=== PATIENT | male | born 1950 | race Caucasian/White ===

== ENCOUNTER 2019-09-23 05:32 | Day surgery (SDC) ==
[2019-09-18 08:51] LABS: URINE SOURCE CLEAN CATCH
[2019-09-18 08:57] LABS: BASO# 0.01 X1000 (0.0-0.2); BASO% 0.2 % (0.0-0.8); EOS# 0.09 X1000 (0.0-0.7); EOS% 1.5 % (0.0-10.0); HEMATOCRIT 55.8 % (42.0-52.0); HEMOGLOBIN 17.8 g/dL (14.0-18.0); IMM GRAN# 0.05 X1000 (0.0-0.04); IMM GRAN% 0.8 % (0.0-0.5); LYMPH# 1.46 X1000 (1.2-3.4); LYMPH% 23.8 % (20.5-51.1); MCH 29.7 PG (27-31); MCHC 31.9 g/dL (33-37); MONO# 0.61 X1000 (0.11-0.59); MONO% 9.9 % (1.7-9.3); MPV 11.7 FL (7.4-10.4); NEUT# 3.92 X1000 (1.4-6.5); NEUT% 63.8 % (42.2-75.2); PLT 165 X1000 (130-400); RDW 15.7 % (11.5-14.5); WBC 6.14 X1000 (4.8-10.8)
[2019-09-18 08:59] LABS: BILIRUBIN URINE NEGATIVE (NEGATIVE); BLOOD URINE NEGATIVE (NEGATIVE); COLOR YELLOW; GLUCOSE URINE NEGATIVE (NEGATIVE); KETONE URINE TRACE mg/dL (NEGATIVE); LEUKOCYTES URINE NEGATIVE (NEGATIVE); NITRITE URINE NEGATIVE (NEGATIVE); PROTEIN URINE TRACE mg/dL (NEGATIVE); SP GRAVITY URINE 1.027; TURBIDITY URINE CLEAR (CLEAR); UROBILINOGEN URINE NORMAL (NORMAL)
[2019-09-18 09:01] LABS: UR EPITHELIAL CELLS <10 /HPF (<10); URINE BACTERIA NEGATIVE /HPF; URINE RBC <10 /HPF (<10); URINE WBC <10 /HPF (<10)
[2019-09-18 09:03] LABS: INR 0.92; PROTIME 12.5 Seconds (11.0-16.0)
[2019-09-18 09:10] LABS: HEMOGLOBIN A1C 5.8 % (4.8-6.0)
[2019-09-18 09:25] LABS: ALBUMIN 4.1 g/dL (3.5-5.0); CALCIUM 9.3 mg/dL (8.8-10.2); CREATININE 1.3 mg/dL (0.7-1.2); POTASSIUM 4.1 mmol/L (3.5-5.1)
[2019-09-23] MEDS ORDERED: LYRICA ONE (06:11)
[2019-09-23] MEDS ORDERED: PEPCID ONE (06:11)
[2019-09-23] MEDS ORDERED: REGLAN ONE (06:11)
[2019-09-23] MEDS ORDERED: CELEBREX ONE (06:11)
[2019-09-23] MEDS ORDERED: COLACE ONE (06:11)
[2019-09-23] MEDS ORDERED: KEFZOL 1 GM/D5W 2 GM/100 ML IVPB ONE (06:12)
[2019-09-23] MEDS ORDERED: LR 1,000 ML ONE (06:12)
[2019-09-23] MEDS ORDERED: VANCOMYCIN ONE (06:32)
[2019-09-23] MEDS ORDERED: TORADOL ONE (06:32)
[2019-09-23] MEDS ORDERED: MARCAINE 0.25% PF ONE (06:32)
[2019-09-23] MEDS ORDERED: DURAMORPH ONE (06:32)
[2019-09-23] MEDS ORDERED: CYKLOKAPRON 1,000 MG/NS 1,000 MG/100 ML IVPB ONE ×2 (06:33→06:34)
[2019-09-23] MEDS ORDERED: SODIUM CHLORIDE 0.9% ONE (06:33)
[2019-09-23] MEDS ORDERED: NEOSPORIN G.U. IRRIGANT ONE (06:33)
[2019-09-23] MEDS ORDERED: EXPAREL 1.3% ONE (06:33)
[2019-09-23] MEDS ORDERED: FENTANYL ONE ×2 (06:39→08:00)
[2019-09-23] MEDS ORDERED: DIPRIVAN 1% ONE (06:39)
[2019-09-23] MEDS ORDERED: VERSED ONE (06:39)
[2019-09-23] MEDS ORDERED: ZOFRAN ONE (07:57)
[2019-09-23] MEDS ORDERED: DECADRON ONE (07:57)
[2019-09-23] MEDS ORDERED: OFIRMEV 1000 MG/ISOTONIC SOLN 1,000 MG/100 ML BOTTLE ONE (07:57)
[2019-09-23 08:02] LABS: URINE SOURCE CATH
[2019-09-23 08:12] LABS: BILIRUBIN URINE NEGATIVE (NEGATIVE); BLOOD URINE NEGATIVE (NEGATIVE); COLOR YELLOW; GLUCOSE URINE NEGATIVE (NEGATIVE); KETONE URINE TRACE mg/dL (NEGATIVE); LEUKOCYTES URINE NEGATIVE (NEGATIVE); NITRITE URINE NEGATIVE (NEGATIVE); PROTEIN URINE TRACE mg/dL (NEGATIVE); SP GRAVITY URINE 1.025; TURBIDITY URINE CLEAR (CLEAR); UROBILINOGEN URINE NORMAL (NORMAL)
[2019-09-23 08:13] LABS: UR EPITHELIAL CELLS <10 /HPF (<10); URINE BACTERIA NEGATIVE /HPF; URINE RBC <10 /HPF (<10); URINE WBC <10 /HPF (<10)
[2019-09-23] MEDS ORDERED: EPHEDRINE ONE (08:56)
[2019-09-23] MEDS ORDERED: OXY IR PO PRN ×2 (10:00)
[2019-09-23] MEDS ORDERED: ZOFRAN IV PRN (10:00)
[2019-09-23] MEDS ORDERED: MORPHINE IV PRN ×3 (10:00)
[2019-09-23] MEDS ORDERED: MILK OF MAGNESIA PO PRN (10:00)
[2019-09-23] MEDS ORDERED: ZOFRAN ODT PO PRN (10:00)
[2019-09-23] MEDS ORDERED: NS 1,000 ML ONE (10:06)
[2019-09-23] MEDS ORDERED: OXY IR ONE (10:17)
--- NOTE | 2019-09-23 11:03 | OPERATIVE NOTE ---
PROCEDURE DATE: 09/23/2019 PREOPERATIVE DIAGNOSIS: Left knee degenerative joint disease. POSTOPERATIVE DIAGNOSIS: Left knee degenerative joint disease. PROCEDURE: Left total knee arthroplasty using a [employer] size 9 femoral component, size 9 tibial base plate, a 14 mm articular insert and a 35 mm patellar component. ANESTHESIA: Spinal and general. SURGEON: Juan Stanley MD. DOOR FITTER: Chayito ZENG, who was present throughout the case whose assistance was critical for exposure, placement of endplates, decision making and closure. Her assistance was necessary for successful completion of case. BLOOD LOSS: Minimal. TOURNIQUET TIME: Approximately an hour. PROCEDURE: The patient was brought to the operative suite and placed in supine position. After administration of spinal anesthesia, the left lower extremity was prepped and draped in the usual sterile fashion. Leg was exsanguinated. Tourniquet insufflated to 350 torr. He was found to have an incomplete spinal upon beginning the skin incision. Therefore he underwent an LMA. Then the incision was made from the superior pole of the patella to the tibial tuberosity. The skin flaps were elevated medially and laterally. A medial arthrotomy was made. The medial capsule was elevated off the medial tibial plateau. The ACL, PCL, medial meniscus, and lateral meniscus were excised. A drill was entered into the center of the distal femur. Intramedullary guide was placed. The cutting block was pinned in place and distal cut made with oscillating saw. The attention was then directed to the tibia. A drill was then inserted into the tibia. Intramedullary guide was placed. The line was checked with drop linda referencing off the anterior cortex of the tibia and the second ray of the foot and taking 4 mm off the low side the tibia which in this case was medially. The articular surface of the tibial plateau was removed with oscillating saw. Marginal osteophytes removed with rongeur. The knee was taken out in extension. Once we were certain we had removed all medial and lateral meniscus and capsular redundant tissue including stump of the PCL, the extension gap was checked. It was tight medially. A medial release was performed and then it was balanced at 14 mm in extension. The flexion gap was set to 23 mm to account for 9 mm of the posterior condyle of the femur and then once rotation was set and was in line with the transepicondylar axis. The femur was sized to a size 9 cutting block was pinned into place. The anterior cuts, chamfer cuts, and posterior condylar cuts were made with the oscillating saw. Marginal osteophytes removed with rongeur. Box cutting block was pinned in place. Box cut was made with a box osteotome and oscillating saw. Posterior condyle osteophytes were removed with the curved osteotome and rongeur. Attention was directed to the tibia. The tibia measured to a size 9. A size 9 guide was used to do the fin punch, was set with the proper amount of external rotation. Then the tibial trial femoral trial and 14 mm articular insert were placed and through range of motion and found have excellent alignment, balancing range of motion. Attention was then directed to the patella where 9 mm of the articular surface of the patella were removed with oscillating saw. Patella sized to a size 35. A size 35 guide was used to drill peg holes. The lateral facet was chamfered 30 to 45 degrees. Patella trial was placed, taken through range of motion, found have excellent patella tracking. All trials were then removed. Knee was copiously irrigated and dried, being certain all bone debris was removed. The tibial component, femoral component, and patellar component were cemented into place, excess cement being removed with a [place]. Once the cement hardened excess cement was again removed with an osteotome. Knee was again copiously irrigated and dried, being certain all bone and cement debris were removed. The trial articular insert was removed. The knee was copiously infiltrated with Exparel including the posterior capsule, anterior capsule, intramuscular, and subcutaneous tissue. The tourniquet was deflated. Hemostasis was obtained with electrocautery. The 14 mm articular insert was locked into place and then the knee was copiously irrigated again with normal saline containing irrigant and Vashe irrigation. The medial arthrotomy was closed with 0 V-Loc. The skin edge approximated with 2-0 Vicryl. Skin was closed with a Prineo and a sterile dressing was applied. The patient tolerated the procedure well without complication. He was transferred to recovery room in stable condition. cc: Juan Stanley MD
[2019-09-23] MEDS: TYLENOL PO SCH ×2 (16:51→21:53)
[2019-09-23] MEDS: KEFZOL 2 GM/D5W 2 GM/50 ML IVPB IV SCH (16:51)
[2019-09-23] MEDS: NS 1,000 ML IV SCH ×2 (16:52→21:49)
[2019-09-23] MEDS: ULTRAM PO SCH ×2 (16:53→21:51)
[2019-09-23] MEDS ORDERED: ZYRTEC PO SCH (21:00)
[2019-09-23] MEDS ORDERED: LYRICA PO SCH (21:00)
[2019-09-23] MEDS ORDERED: VITAMIN B-12 PO SCH (21:00)
[2019-09-23] MEDS ORDERED: VITAMIN D PO SCH (21:00)
[2019-09-23] MEDS ORDERED: LOPRESSOR PO SCH (21:00)
[2019-09-23] MEDS ORDERED: LIPITOR PO SCH (21:00)
[2019-09-23] MEDS: PERIDEX MT SCH (21:51)
[2019-09-23] MEDS: CELEBREX PO SCH (21:53)
[2019-09-23] MEDS: COLACE PO SCH (21:54)
[2019-09-23] MEDS: BUSPAR PO SCH (21:54)
[2019-09-24] MEDS: KEFZOL 2 GM/D5W 2 GM/50 ML IVPB IV SCH
[2019-09-24] MEDS: PATIENT'S OWN MED PO SCH ×2 (03:00→10:36)
[2019-09-24] MEDS: TYLENOL PO SCH ×2 (03:19→08:32)
[2019-09-24] MEDS: ULTRAM PO SCH ×2 (03:19→08:33)
[2019-09-24] MEDS: NS 1,000 ML IV SCH (05:56)
[2019-09-24] MEDS ORDERED: XARELTO PO SCH (06:00)
[2019-09-24 07:20] LABS: HEMATOCRIT 41.1 % (42.0-52.0); HEMOGLOBIN 13.1 g/dL (14.0-18.0)
[2019-09-24 07:40] LABS: CALCIUM 8.9 mg/dL (8.8-10.2); CREATININE 1.4 mg/dL (0.7-1.2); POTASSIUM 4.6 mmol/L (3.5-5.1)
[2019-09-24 08:26] VITALS: BP 119/93
[2019-09-24] MEDS: BUSPAR PO SCH (08:33)
[2019-09-24] MEDS: CELEBREX PO SCH (08:33)
[2019-09-24] MEDS: PERIDEX MT SCH (08:34)
[2019-09-24] MEDS: COLACE PO SCH (08:34)
[2019-09-24] MEDS ORDERED: ZINC SULFATE PO SCH (09:00)
[2019-09-24] MEDS ORDERED: NEXIUM PO SCH (09:00)
[2019-09-24] MEDS ORDERED: FISH OIL CONCENTRATE PO SCH (09:00)
[2019-09-24] MEDS ORDERED: ZYLOPRIM PO SCH (09:00)
[2019-09-24] MEDS ORDERED: DECADRON IV ONE (09:00)
--- NOTE | 2019-09-24 21:45 | DISCHARGE SUMMARY ---
ADMISSION DATE: 09/23/2019 DISCHARGE DATE: 09/24/2019 DISCHARGE DIAGNOSIS: Left knee degenerative joint disease, status post left total knee arthroplasty. DISCHARGE MEDICATIONS: See discharge medication list. DISPOSITION: The patient was discharged home with home health physical therapy. Instructed to return for any signs or symptoms of infection or deep venous thrombosis. Instructed to return to see Dr. Stanley next . HOSPITAL COURSE: On the day of admission, the patient underwent a left total knee arthroplasty. His postoperative course was unremarkable. At discharge, he is afebrile, tolerating a regular diet, ambulating well with physical therapy. PHYSICAL EXAMINATION: His wound is clean, dry, and intact without sign of infection. His calf is soft. He can flex and extend his toes. He has brisk capillary refill. There is no sign of DVT. DISPOSITION: He is discharged home in stable condition with instructions to follow up as described above. cc: Juan Stanley MD
[2019-09-29] MEDS ORDERED: TESTOSTERONE CYPIONATE 100 MG IM SCH ×2 (09:00)
== END 2019-09-24 11:13 | disposition home or self-care (01) ==
LOC: OR 05:32 → 4N 05:32 → OR 09-24 11:13
PROVIDERS: ATTEND Orthopaedic Surgery